=== PATIENT | female | born 1980 | race Caucasian/White ===

== ENCOUNTER 2019-03-25 09:31 | Observation (INO) ==
[2019-03-25 10:10] LABS: Hematocrit 36.8 % (35.3-44.9); Hemoglobin 12.7 g/dL (11.5-15.4); Mean Corpuscular HGB Conc 34.5 g/dL (31.6-35.5); Mean Platelet Volume 9.3 fL (9.4-12.4); Platelet Count 340 K/mcL (140-400); Red Blood Count 4.23 M/mcL (3.82-4.97); Red Cell Distribution Width 12.8 % (11.5-14.5); White Blood Count 9.3 K/mcL (4.3-11.1)
[2019-03-25 10:21] LABS: INR 1.1; Prothrombin Time 12.3 Seconds (9.4-12.1)
[2019-03-25 10:23] LABS: Activated Partial Thrombo Time 36.1 Seconds (26.0-36.0)
[2019-03-25 10:24] LABS: BUN/Creatinine Ratio 7 (6-26); Blood Urea Nitrogen 5 mg/dL (6-20); Carbon Dioxide 25 mEq/L (23-29); Chloride 106 mEq/L (98-107); Glucose 108 mg/dL (70-105); Osmolality,Calculated 282 (280-300); Potassium 3.6 mEq/L (3.5-5.1); Sodium 137 mEq/L (136-145); Troponin I < 0.03 ng/mL (< 0.04); eGFR For African Americans > 60 (> 60); eGFR For Non-African Americans > 60 (> 60)
[2019-03-25] MEDS ORDERED: Aspirin 81 MG TAB.CHEW PO ONE (11:01)
[2019-03-25 11:03] LABS: Bilirubin,Urine Negative (Negative); Blood,Urine Negative (Negative); Clarity,Urine Cloudy (Clear); Color,Urine Yellow (Yellow); Glucose,Urine (UA) Normal (Normal); Ketones,Urine Negative (Negative); Leukocyte Esterase,Urine Large (Negative); Nitrite,Urine Negative (Negative); Protein,Urine Negative (Neg-Trace); Specific Gravity,Urine 1.007 (1.010-1.025); Urobilinogen,Urine Normal (Normal)
[2019-03-25 11:06] LABS: Bacteria,Urine Many per hpf (None-Few); Hyaline Casts,Urine None Seen per lpf (None-Few); Squamous Epithelial Cell,Urine Many per lpf (None-Few); WBC,Urine 30-50 per hpf (0-3)
[2019-03-25] MEDS ORDERED: Acetaminophen 325 MG TABLET PO PRN (11:11)
[2019-03-25] MEDS ORDERED: Ondansetron 4 MG/2 ML VIAL IVP PRN (11:11)
[2019-03-25] MEDS ORDERED: Nicotine 2 MG GUM BC PRN (11:17)
[2019-03-25] MEDS: Nicotine 21 MG PATCH.TD24 TD SCH (14:59)
[2019-03-26 06:26] LABS: Hematocrit 34.3 % (35.3-44.9); Hemoglobin 11.4 g/dL (11.5-15.4); Mean Corpuscular HGB Conc 33.2 g/dL (31.6-35.5); Mean Corpuscular Hemoglobin 29.5 pg (28.0-33.3); Mean Corpuscular Volume 88.6 fL (83.0-100.0); Mean Platelet Volume 9.1 fL (9.4-12.4); Platelet Count 278 K/mcL (140-400); Red Blood Count 3.87 M/mcL (3.82-4.97); Red Cell Distribution Width 12.9 % (11.5-14.5); White Blood Count 8.3 K/mcL (4.3-11.1)
[2019-03-26 06:43] LABS: BUN/Creatinine Ratio 9 (6-26); Blood Urea Nitrogen 7 mg/dL (6-20); Calcium 8.9 mg/dL (8.6-10.3); Carbon Dioxide 26 mEq/L (23-29); Chloride 105 mEq/L (98-107); Chol/HDL Ratio 5.4 (0-4.9); Cholesterol 167 mg/dL (< 200); Glucose 113 mg/dL (70-105); HDL Cholesterol 31 mg/dL (40-59); LDL Cholesterol,Calculated 111 mg/dL (0-99); Magnesium 2.1 mg/dL (1.6-2.6); Osmolality,Calculated 285 (280-300); Sodium 138 mEq/L (136-145); Triglycerides 125 mg/dL (< 150); eGFR For African Americans > 60 (> 60); eGFR For Non-African Americans > 60 (> 60)
[2019-03-26 06:44] LABS: Estimated Average Glucose 100 mg/dl
[2019-03-26] MEDS: Nicotine 21 MG PATCH.TD24 TD SCH (08:29)
[2019-03-26] MEDS: Aspirin 81 MG TAB.CHEW PO SCH (08:30)
[2019-03-26] MEDS: BuPROPion SR (12 HR) 150 MG TABLET PO SCH (08:30)
[2019-03-26] MEDS ORDERED: Isovue-370 500 ML BOTTLE IVP ONE (10:42)
[2019-03-27 09:06] LABS: Amphetamine Screen,Urine Negative ng/mL (Cutoff=1000); Barbiturate Screen,Urine Negative ng/mL (Cutoff=200); Benzodiazepines Screen,Urine Negative ng/mL (Cutoff=200); Cannabinoid Screen,Urine Negative ng/mL (Cutoff = 50); Cocaine Screen,Urine Negative ng/mL (Cutoff= 300); Opiate Screen,Urine Negative ng/mL (Cutoff=300); Phencyclidine Screen,Urine Negative ng/mL (Cutoff=25)
[2019-03-27] MEDS: BuPROPion SR (12 HR) 150 MG TABLET PO SCH (10:28)
[2019-03-27] MEDS: Nicotine 21 MG PATCH.TD24 TD SCH (10:28)
[2019-03-27] MEDS: Aspirin 81 MG TAB.CHEW PO SCH (10:28)
[2019-03-27 15:19] VITALS: BP 108/61
[2019-03-29 00:50] LABS: APTT (LE Anticoag) 39 sec (32-48); Diluted Russell Viper Venom 37 sec (33-44); PT (LE-Anticoag) 12.8 sec (12.0-15.5)
[2019-03-29 18:00] LABS: FACV Specimen WHOLE BLOOD
[2019-03-30 07:29] LABS: Fac V Leiden R506Q Mut Result NEGATIVE
== END 2019-03-27 16:50 | disposition home or self-care (01) ==
LOC: EMEROOARM 09:31 → 3BNU 09:31
PROVIDERS: ADMIT Internal Medicine; ATTEND Internal Medicine